=== PATIENT | female | born 1960 | race Caucasian/White ===

== ENCOUNTER 2017-10-31 08:37 | Emergency (ER) | payer SELFPAY ==
[2017-10-31 09:10] VITALS: TEMP 97.4
[2017-10-31] MEDS ORDERED: SODIUM CHLORIDE 0.9% (FLUSH) 10 ML SYG IV PRN (09:16)
[2017-10-31] MEDS ORDERED: KETOROLAC TROMETHAMINE INJ 30 MG/ML VIAL IV ONE (09:16)
[2017-10-31] MEDS ORDERED: MORPHINE SULFATE INJ 10 MG/ML VIAL IV ONE (09:17)
--- NOTE | 2017-10-31 09:30 | ED.PDOC ---
History of Present Illness - General Chief Complaint: Back Pain or Injury Stated Complaint: left back pain Time Seen by Provider: 10/31/17 09:16 Source: patient Exam Limitations: no limitations - History of Present Illness Initial Comments: PT REPORTS 3 DAY HISTORY OF LLQ ABDOMINAL PAIN RADIATING TO THE BACK. PT REPORTS PAIN WAS INTERMITTENT AT ONSET BUT IS NOW MORE CONSTANT. SHE DENIES, FEVER, CHILLS, DYSURIA, HEMATURIA, DIARRHEA. SHE DOES REPORT RECENT CONSTIPATION. PT REPORTS HISTORY OF L RENAL STONE AND RENAL ABSCESS IN THE PAST. PT WAS SEEN IN THE ED IN [place] 2 DAYS AGO BUT REPORTS THAT SHE DID NOT RECEIVE A CT SCAN OR ULTRASOUND AT THAT TIME. PT HAS BEEN TAKING ALEVE FOR PAIN WITH ONLY PARTIAL RELIEF. Timing/Duration: getting worse Severity: severe Improving Factors: nothing Worsening Factors: nothing Associated Symptoms: denies symptoms Allergies/Adverse Reactions: Allergies NO KNOWN ALLERGY Allergy (Unverified 11/30/12 12:15) Home Medications: Ambulatory Orders Ibuprofen [Motrin Tab] 600 mg PO TID PRN #15 tab 12/31/13 Amoxicillin & Pot Clavulanate [Augmentin] 875 mg PO BID #20 tab 10/31/17 Tramadol-Acetaminophen [Ultracet] 1 - 2 tab PO Q6HR PRN #30 tab 10/31/17 Review of Systems - Review of Systems Constitutional: Denies: chills, fever EENTM: Denies: ear pain Respiratory: Denies: cough, short of breath Cardiology: Denies: chest pain, palpitations Gastrointestinal/Abdominal: States: constipation. Denies: diarrhea, nausea, vomiting Genitourinary: Denies: dysuria, frequency Musculoskeletal: Denies: joint pain, joint swelling Skin: Denies: dryness, lesions Neurological: States: paresthesia - TO THE LEFT FLANK REGION. Denies: headache Past Medical History (General) - Patient Medical History Hx Seizures: No Hx Stroke: No Hx Dementia: No Hx Asthma: No Hx of COPD: No Hx Cardiac Disorders: No Hx Congestive Heart Failure: No Hx Pacemaker: No Hx Hypertension: No Hx Thyroid Disease: No Hx Diabetes: No Hx Gastroesophageal Reflux: Yes Hx Renal Disease: No Hx of HIV: No Hx MRSA: No Surgical History: Hysterectomy - Social History Hx Tobacco Use: Yes Family Medical History - Family History Mother Family History: No Known Physical Exam - Physical Exam General Appearance: Alert, Well Developed, Well Hydrated, Other - APPEARS UNCOMFORTABLE Eye Exam: bilateral normal Ears, Nose, Throat: hearing grossly normal, normal ENT inspection Respiratory: no respiratory distress Cardiovascular/Chest: regular rate, rhythm, no edema Gastrointestinal/Abdominal: soft, tenderness - IN THE LLQ Back Exam: CVA tenderness (L) - MILD Extremity: normal range of motion, non-tender, normal inspection Neurologic: alert, normal mood/affect, oriented x 3 Skin Exam: normal color, warm/dry Progress - Progress Progress: 10/31/17 11:53 PT REPORTS COMPLETE RESOLUTION OF PAIN AFTER TORADOL AND MORPHINE. PT EATING A SANDWICH. LABS AND DIAGNOSTICS DISCUSSED. PT CONCERNED ABOUT THE POSSIBILITY OF COLON CANCER. PT INSTRUCTED TO FOLLOW UP WITH PCP REGARDING A COLONOSCOPY FOR COLON CANCER SCREENING. WILL START ABX FOR THE POSSIBILITY OF EARLY DIVERTICULITIS, GIVEN THE NATURE AND LOCATION OF PATIENTS PAIN. - Results/Orders Results/Orders: Laboratory Tests 10/31/17 10/31/17 10/31/17 09:30 09:30 10:15 WBC 10.7 RBC 4.91 Hgb 15.9 Hct 46.9 MCV 95.4 MCH 32.4 H MCHC 33.9 RDW 14.0 Plt Count 293 MPV 7.5 Absolute Neuts (auto) 7.30 H Absolute Lymphs (auto) 2.50 Absolute Monos (auto) 0.60 Absolute Eos (auto) 0.20 Absolute Basos (auto) 0.10 Neutrophils % 68.1 Lymphocytes % 23.7 Monocytes % 5.5 Eosinophils % 2.2 Basophils % 0.5 Sodium 139 Potassium 3.4 L Chloride 100 L Carbon Dioxide 30 Anion Gap 12.4 BUN 21 H Creatinine 0.99 BUN/Creatinine Ratio 21.2 H Random Glucose 110 H Serum Osmolality 281.2 Calcium 10.4 H Total Bilirubin 0.6 Direct Bilirubin < 0.1 Indirect Bilirubin 0.5 AST 19 ALT 16 Alkaline Phosphatase 123 H Serum Total Protein 8.2 Albumin 4.0 Urine Color Yellow Urine Appearance Clear Urine pH 6.0 Ur Specific [place] 1.020 Urine Protein 100 H Urine Glucose (UA) Negative Urine Ketones Negative Urine Blood Small H Urine Nitrite Negative Urine Bilirubin Negative Urine Urobilinogen 0.2 Ur Leukocyte Esterase Negative Urine RBC 3-5 H Urine WBC 1-3 Ur Epithelial Cells 1-3 Urine Bacteria 1+ Departure - Departure Clinical Impression: Abdominal tenderness of left lower quadrant, Diverticulosis of colon Time of Disposition: 11:56 Disposition: Discharge to Home or Self Care Condition: Good Departure Forms: ED Discharge - Pt. Copy, Patient Portal Self Enrollment Instructions: DI for Diverticulosis Diet: resume usual diet Referrals: [facility] [Provider Group] - 1-5 Days Prescriptions: Tramadol-Acetaminophen [Ultracet] 1 - 2 tab PO Q6HR PRN #30 tab PRN Reason: Pain Amoxicillin & Pot Clavulanate [Augmentin] 875 mg PO BID #20 tab Home Medications: Ambulatory Orders Ibuprofen [Motrin Tab] 600 mg PO TID PRN #15 tab 12/31/13 Amoxicillin & Pot Clavulanate [Augmentin] 875 mg PO BID #20 tab 10/31/17 Tramadol-Acetaminophen [Ultracet] 1 - 2 tab PO Q6HR PRN #30 tab 10/31/17
--- NOTE | 2017-10-31 11:17 | CT ---
EXAM DESCRIPTION: Abdomen/Pelvis w/Contrast CLINICAL HISTORY: left flank pain, LLQ ABD TENDERNESS COMPARISON: October 01 9015 TECHNIQUE: Postcontrast CT images of the abdomen and pelvis are obtained using standard imaging protocol. This exam was performed according to our departmental dose-optimization program, which includes automated exposure control, adjustment of the mA and/or kV according to patient size and/or use of iterative reconstruction technique . FINDINGS: Visualized lung bases show no acute findings. Small right epicardial lymph node is stable. Liver, spleen, pancreas, right adrenal gland, and gallbladder are unremarkable. Mild nodular thickening of the left adrenal gland is stable from previous. Moderate atherosclerotic disease is seen. The tiny nonobstructing calcifications in the calyces of the right kidney seen on previous exam are less well identified on today's exam. No right ureteral obstruction. Mild left perinephric scarring is seen possibly related to previous gastrostomy tube placement unchanged from previous. Bilateral renal cortical cysts are noted. Focal calcification in the cortex of the left mid to upper pole kidney measuring 2.2 cm is stable. Several nonobstructing less than 4 mm calcifications are seen in the calyces of the left kidney. No ureteral calcification or obstruction is seen. Urinary bladder is contracted and does fill with contrast on delayed images. 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 The ovaries are not identified. The appendix is not seen. No small bowel obstruction. Mild colon diverticulosis without CT evidence of diverticulitis. No pathologically enlarged abdominal or retroperitoneal lymphadenopathy seen. Mild degenerative changes of the spine are seen. IMPRESSION: Stable nonobstructing bilateral nephrolithiasis. Largest calcification in the cortex of the lateral mid to upper pole left kidney is stable from previous. No CT evidence of ureteral obstruction. Urinary bladder is not well evaluated because of poor distention. Mild colon diverticulosis is seen without CT evidence of diverticulitis. Electronically signed by: Dionicio Woods MD 10/31/2017 11:15 AM CDT
[2017-10-31] MEDS ORDERED: AMOXICILLIN & POT CLAVULANATE 875 MG TAB PO ONE (11:52)
[2017-10-31 12:21] VITALS: BP 156/97; O2SAT 99
== END 2017-10-31 12:26 | disposition home or self-care (01) ==
LOC: ER 08:37
DX: K57.10 Diverticulosis of small intestine without perforation or abscess without bleeding (principal); K21.9 Gastro-esophageal reflux disease without esophagitis; F17.200 Nicotine dependence, unspecified, uncomplicated
CPT/HCPCS: 36415; 74177; 80048; 80076; 81001; 85025; J1885; J2270

== ENCOUNTER 2018-03-25 20:39 | Emergency (ER) | payer SELFPAY ==
[2018-03-25 21:35] VITALS: TEMP 99; O2SAT 99
--- NOTE | 2018-03-25 21:52 | RAD ---
EXAM DESCRIPTION: AP view of the chest CLINICAL HISTORY:57 years Female, syncope Comparison: None FINDINGS: No focal lung consolidation. No pleural effusion. No pneumothorax. Cardiac and mediastinal silhouette is unremarkable. No acute osseous abnormality. Soft tissues are unremarkable. IMPRESSION: No acute findings. No focal lung consolidation. Electronically signed by: Alfonzo Corral DO 03/25/2018 9:50 PM CDT
--- NOTE | 2018-03-25 22:11 | CT ---
EXAM: Head CLINICAL INDICATION: Seizure COMPARISON: There is no previous study for comparison. TECHNIQUE: The CT scan was done using contiguous axial 5 mm sections through the brain. This exam was performed according to our departmental dose-optimization program, which includes automated exposure control, adjustment of the mA and/or kV according to patient size and/or use of iterative reconstruction technique. FINDINGS: There is no midline shift, mass effect, or extraaxial fluid collection. There is no evidence of acute intracranial hemorrhage, mass lesion, or cerebral edema. The ventricles and cortical sulci are normal for the patient's age. Bone window images reveal no evidence of a skull fracture. IMPRESSION: No evidence of an acute intracranial process. Electronically signed by: Misbah Thakkar MD 03/25/2018 10:09 PM CDT
--- NOTE | 2018-03-25 22:35 | ED.PDOC ---
History of Present Illness - General Chief Complaint: Syncope/Near Syncope Stated Complaint: Syncopal episode Time Seen by Provider: 03/25/18 21:17 Source: patient, Vital Signs reviewed, family Exam Limitations: clinical condition - History of Present Illness Initial Comments: Says she was in her usual state of health watching TV when she noted some wavy lights to her left eye & an indescribable feeling that something was wrong. That 's the last thing she remembers. She has had these sensations before but never this bad. Her family says she called out, turned her head as if looking at something, her eyes rolled up in her head & she had urinary incontinence. This lasted no more than 10 seconds & he didn't note any convulsions. She was briefly confused after awakening. Presently she feels back to normal. She denies having had any other symptoms. Timing/Prior Episodes: no prior history Precipitating Factors: none Context: sitting Loss of Consciousness: brief (seconds) Current Symptoms: back to normal Allergies/Adverse Reactions: Allergies NO KNOWN ALLERGY Allergy (Verified 03/25/18 21:35) Home Medications: Ambulatory Orders Ibuprofen [Motrin Tab] 600 mg PO TID PRN #15 tab 12/31/13 Amoxicillin & Pot Clavulanate [Augmentin] 875 mg PO BID #20 tab 10/31/17 Tramadol-Acetaminophen [Ultracet] 1 - 2 tab PO Q6HR PRN #30 tab 10/31/17 Review of Systems - Review of Systems Constitutional: States: no symptoms reported EENTM: States: no symptoms reported Respiratory: States: no symptoms reported Cardiology: States: no symptoms reported Gastrointestinal/Abdominal: States: no symptoms reported Genitourinary: States: no symptoms reported Musculoskeletal: States: no symptoms reported Skin: States: no symptoms reported Neurological: States: see HPI Endocrine: States: no symptoms reported Hematologic/Lymphatic: States: no symptoms reported Past Medical History (General) - Patient Medical History Hx Seizures: No Hx Stroke: No Hx Dementia: No Hx Asthma: No Hx of COPD: No Hx Cardiac Disorders: No Hx Congestive Heart Failure: No Hx Pacemaker: No Hx Hypertension: No Hx Thyroid Disease: No Hx Diabetes: No Hx Gastroesophageal Reflux: Yes Hx Renal Disease: No Hx of HIV: No Hx MRSA: No Surgical History: Hysterectomy - Vaccination History Hx Tetanus, Diphtheria Vaccination: No Hx Influenza Vaccination: No Hx Pneumococcal Vaccination: No - Social History Hx Tobacco Use: Yes Hx Alcohol Use: No Physical Exam - Physical Exam General Appearance: Alert, Comfortable, No apparent distress Eyes, Ears, Nose, Throat Exam: normal ENT inspection Neck: full range of motion, supple, normal inspection Cardiovascular/Respiratory: regular rate, rhythm, no M/R/G, no JVD, normal breath sounds, no respiratory distress Gastrointestinal/Abdominal: non tender, soft, no organomegaly Back Exam: normal inspection Extremity: normal range of motion, non-tender, normal inspection, no pedal edema , normal capillary refill Mental Status: alert, oriented x 3 program rep Exam: normal hearing, normal speech, PERRL Coordination/Gait: normal gait Motor/Sensory: no motor deficit, no sensory deficit Skin Exam: normal color, warm/dry Progress - Progress Progress: 03/26/18 07:02 Remained asymptomatic throughout her stay. I suspect a seizure. She will f/u with a PCP & neurology. - Results/Orders Results/Orders: CK 511 Tr <0.02 - EKG/XRAY/CT EKG: Sinus Comments: HR 70; nml axis, intervals, QRS, ST-T XRAY: chest - WNL CT: brain: WNL Departure - Departure Clinical Impression: Syncope Qualifiers: Syncope type: unspecified Qualified Code(s): R55 - Syncope and collapse Time of Disposition: 22:34 Disposition: Discharge to Home or Self Care Condition: Good Departure Forms: ED Discharge - Pt. Copy, Patient Portal Self Enrollment Instructions: DI for Syncope in Adults (Fainting), Seizures, Adult (DC) Home Medications: Ambulatory Orders Ibuprofen [Motrin Tab] 600 mg PO TID PRN #15 tab 12/31/13 Amoxicillin & Pot Clavulanate [Augmentin] 875 mg PO BID #20 tab 10/31/17 Tramadol-Acetaminophen [Ultracet] 1 - 2 tab PO Q6HR PRN #30 tab 10/31/17
[2018-03-25 22:48] VITALS: BP 173/90
== END 2018-03-25 22:48 | disposition home or self-care (01) ==
LOC: ER 20:39
DX: R55 Syncope and collapse (principal); Z87.891 Personal history of nicotine dependence